=== PATIENT | male | born 1970 | race Caucasian/White ===

== ENCOUNTER 2018-05-19 20:32 | Emergency (ER) | payer MEDICARE, SELFPAY ==
[2018-05-19 20:36] VITALS: BP 124/79; PULSE 82; RESP 20; TEMP 38.2; O2SAT 98
[2018-05-19 21:02] LABS: Influenza A and B by PCR Rapid Negative (Negative)
--- NOTE | 2018-05-19 21:34 | DI.RAD.S_ITS ---
PROCEDURE: XR CHEST 1V INDICATIONS: fever cough TECHNIQUE: One view of the chest was acquired. COMPARISON: None. FINDINGS: Surgical changes and devices: None. Lungs and pleura: No pleural effusions or pneumothorax. Calcified granuloma is present in the right base. Mediastinum: Mediastinal contours appear normal. Heart size is normal. Bones and chest wall: No suspicious bony lesions. Overlying soft tissues appear unremarkable. IMPRESSION: No acute pulmonary process. Dictated by: Anya Adkins M.D. on 05/20/2018 at 11:20 Approved by: Anya Adkins M.D. on 05/20/2018 at 11:26
[2018-05-19] MEDS: KETOROLAC 60 MG/2 ML VIAL 30 MG IV (21:43)
[2018-05-19] MEDS: SODIUM CHLORIDE 0.9% 1,000 ML 1000 ML IV (21:43)
[2018-05-19] MEDS: ONDANSETRON 4 MG/2 ML INJ IV (21:44)
--- NOTE | 2018-05-19 21:47 | ED_ITS ---
HPI - Fever General Chief Complaint: Fever Stated Complaint: STATES FLU SYMPTOMS Time Seen by Provider: 05/19/18 21:19 Source: patient Mode of arrival: ambulatory Limitations: no limitations History of Present Illness HPI Narrative: the patient is a 48-year-old male who has had fever and body aches ongoing for the last 5 days. His he says that the chills and body aches for the worse. He has been having some nausea and vomiting unable to keep any fluids down. His he denies any real significant abdominal pain or diarrhea. His he sometimes has cough no real chest pain. MD complaint: fever Onset (ago): day(s) (5) Associated symptoms: chills, rigors, nausea and vomiting Exacerbating factors: nothing Treatments prior to arrival fever: ibuprofen ( At 2:00 p.m.) Related Data Previous Rx's Medication Instructions Recorded MELOXICAM 15 mg PO Q DAY #90 01/10/11 cyclobenzaprine 10 mg PO TIDP #90 01/10/11 ondansetron HCl 4 mg PO DAILY PRN #10 tab 05/19/18 Allergies Allergy/AdvReac Type Severity Reaction Status Date / Time No Known Drug Allergies Allergy Verified 05/19/18 21:39 Review of Systems Review of Systems ROS Unobtainable: All systems reviewed & are unremarkable except as noted in HPI and below Constitutional Reports body ache(s), Reports chills, Reports fatigue and Reports fever(s) Eyes Denies change in vision, Denies eye discharge, Denies irritation and Denies loss of vision ENT Ears, Nose, Mouth, and Throat: Denies change in voice, Denies neck pain and Denies sore throat Cardiovascular Denies dyspnea and Denies dyspnea on exertion Respiratory Denies cough, Denies dyspnea, Denies dyspnea on exertion and Denies wheezing Gastrointestinal Gastrointestinal: Denies abdominal pain, Denies change in bowel habits, Denies diarrhea, Reports nausea and Reports vomiting Musculoskeletal Denies neck pain Neurologic Denies loss of vision Endocrine Reports fatigue Allergic/Immunologic Denies wheezing PFSH Medical History 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 HEENT: Head atraumatic,EOMI, pupils reactive, neck is supple CARDIOVASCULAR: Regular rate and rhythm without murmurs, rubs or gallops. RESPIRATORY: Breath sounds equal bilaterally, no wheezes rales or rhonchi. ABDOMEN: Soft, nontender. Normoactive bowel sounds all 4 quadrants. No guarding or rebound. : No CVA tenderness EXTREMITIES: Normal range of motion, no clubbing or edema. Neurovascularly intact NEUROLOGICAL: Alert and oriented x4.Normal gait and speech. Cranial nerves II through XII grossly intact. SKIN: Warm, dry, no laceration, no petechiae, no rashes or lesions. Course Orders Ordered: ED Orders 05/19/18 20:43 Influenza A and B by PCR Rapid Stat 05/19/18 21:34 XR chest 1V Stat 05/19/18 22:05 Complete Blood Count AUTO DIFF Stat Comprehensive Metabolic Panel Stat Lactate (Lactic Acid) Stat Lipase Stat 05/19/18 22:15 Blood Culture Stat 05/19/18 22:57 Ictotest Urine Stat Urine Microscopic Stat Discontinued Medications Sodium Chloride (Normal Saline 0.9%) 1,000 mls @ 1,000 mls/hr IV CONT LIBRADO Last Infusion: 05/19/18 22:49 Dose: 1,000 mls/hr Admin: 05/19/18 21:43 Dose: 1,000 mls/hr Ketorolac Tromethamine (Toradol) 30 mg IV NOW ONE Stop: 05/19/18 21:34 Last Admin: 05/19/18 21:43 Dose: 30 mg Ondansetron HCl (Zofran) 4 mg IV NOW ONE Stop: 05/19/18 21:34 Last Admin: 05/19/18 21:44 Dose: 4 mg Ondansetron HCl (Zofran Odt Prepack) 1 bottle MISC SEEINSTR ONE Stop: 05/19/18 23:07 Last Admin: 05/19/18 23:09 Dose: 1 bottle Vital Signs - 8 hr 05/19/18 20:36 05/19/18 22:24 05/19/18 22:43 Temperature 100.7 F H 100.7 F H 98.7 F Pulse Rate 82 82 Respiratory Rate 20 20 Blood Pressure 124/79 124/79 Pulse Oximetry 98 98 MDM - Fever Lab Data Attestation: I reviewed the patient's lab results. Result diagrams: 05/19/18 22:05 05/19/18 22:05 Lab Results 05/19/18 05/19/18 05/19/18 Range/Units 20:43 22:05 22:05 WBC 7.3 (4.5-11.0) X10^3/uL RBC 4.73 (4.5-5.9) X10^6/uL Hgb 13.1 L (13.5-17.5) g/dL Hct 39.7 L (41-53) % MCV 84.0 (80-100) fL MCH 27.8 (26-34) PG MCHC 33.1 (30-36) % RDW 13.6 (11.6-14.8) % Plt Count 328 (150-400) X10^3/uL Neut % (Auto) 60.5 (50-75) % Lymph % (Auto) 27.9 (25-40) % [place] % (Auto) 8.8 (3-14) % Eos % (Auto) 1.9 L (2-4) % Baso % (Auto) 0.9 (0-2) % Neut # (Auto) 4400 (7546-3451) /uL Lymph # (Auto) 2000 (3434-4582) /uL [place] # (Auto) 600 (0-900) /uL Eos # (Auto) 100 (0-450) /uL Baso # (Auto) 100 (0-100) /uL Sodium 137 (137-145) mmol/L Potassium 4.1 (3.4-5.1) mmol/L Chloride 100 (98-107) mmol/L Carbon Dioxide 30 (22-32) mmol/L BUN 19 (9-20) mg/dL Creatinine 0.90 (0.66-1.25) mg/dL Estimated GFR > 60.0 (>60) mL/min BUN/Creatinine Ratio 21.1 (6-22) Glucose 109 H (70-100) mg/dL Lactate (0.7-2.1) mmol/L Calcium 8.9 (8.4-10.2) mg/dL Total Bilirubin 0.4 (0.2-1.3) mg/dL AST 17 (17-59) IU/L ALT 21 (21-72) IU/L Alkaline Phosphatase 46 (38-126) U/L Total Protein 7.0 (6.3-8.2) g/dL Albumin 4.2 (3.5-5.0) g/dL Globulin 2.8 (1.7-4.1) g/dL Albumin/Globulin Ratio 1.5 (1.0-2.8) Lipase 192 (23-300) U/L Urine Ictotest (Negative) Urine RBC (0-5/HPF) Urine WBC (0-5/HPF) Urine Bacteria (None) Ur Culture Indicated? Micro UA Comment Influenza A & B (PCR) Negative (Negative) 05/19/18 05/19/18 Range/Units 22:05 22:57 WBC (4.5-11.0) X10^3/uL RBC (4.5-5.9) X10^6/uL Hgb (13.5-17.5) g/dL Hct (41-53) % MCV (80-100) fL MCH (26-34) PG MCHC (30-36) % RDW (11.6-14.8) % Plt Count (150-400) X10^3/uL Neut % (Auto) (50-75) % Lymph % (Auto) (25-40) % [place] % (Auto) (3-14) % Eos % (Auto) (2-4) % Baso % (Auto) (0-2) % Neut # (Auto) (1576-3061) /uL Lymph # (Auto) (3364-5131) /uL [place] # (Auto) (0-900) /uL Eos # (Auto) (0-450) /uL Baso # (Auto) (0-100) /uL Sodium (137-145) mmol/L Potassium (3.4-5.1) mmol/L Chloride (98-107) mmol/L Carbon Dioxide (22-32) mmol/L BUN (9-20) mg/dL Creatinine (0.66-1.25) mg/dL Estimated GFR (>60) mL/min BUN/Creatinine Ratio (6-22) Glucose (70-100) mg/dL Lactate 0.8 (0.7-2.1) mmol/L Calcium (8.4-10.2) mg/dL Total Bilirubin (0.2-1.3) mg/dL AST (17-59) IU/L ALT (21-72) IU/L Alkaline Phosphatase (38-126) U/L Total Protein (6.3-8.2) g/dL Albumin (3.5-5.0) g/dL Globulin (1.7-4.1) g/dL Albumin/Globulin Ratio (1.0-2.8) Lipase (23-300) U/L Urine Ictotest Negative (Negative) Urine RBC None seen (0-5/HPF) Urine WBC None seen (0-5/HPF) Urine Bacteria None seen (None) Ur Culture Indicated? Cult not indicated Micro UA Comment Microscopic normal Influenza A & B (PCR) (Negative) Urine Dip Bedside Urine Glucose Negative Bedside Urine Bilirubin + 1 Bedside Urine Ketone - Negative Urine Specific [place] 1.015 Bedside Urine Occult Blood - Negative Bedside Urine pH 7.0 Bedside Urine Protein +/- 15 Bedside Urine Urobilinogen +/- 1mg Bedside Urine Nitrite - Negative Bedside Urine Leukocytes - Negative Esterase MDM Narrative Medical decision making narrative: At this time no sign of the sepsis. Patient' s neck is supple he does not have headache do not suspect meningitis. For shunt infection. He overall is feeling much better after IV fluids and Zofran. Blood work is within normal limits. Discharge Plan Departure Patient Disposition: Home Clinical Impression: Gastroenteritis Discharge Date/Time: 05/19/18 23:16 Interventions: ED Discharge Assessment Last Done: 05/19/18 23:16 Instructions: DI for Viral Gastroenteritis -- Adult Activity Restrictions/Additional Instructions: *You have been diagnosed with gastroenteritis *What to do: Likely viral syndrome at this time blood work and x-ray are reassuring. Recommend rehydration with of Gatorade or Gatorade like substance. *Continue to take medications as directed Zofran 4 mg every 6-8 hours as needed *Follow up with your primary care provider in 2-3 days *Return to ER if you should have inability to tolerate any oral fluids, increasing pain, fever not controlled or any new, worsening or concerning symptoms Prescriptions: New ondansetron HCl 4 mg tablet 4 mg PO DAILY PRN (Reason: nausea and vomiting) Qty: 10 RF: 0 No Action cyclobenzaprine 10 MG tablet 10 mg PO TIDP Qty: 90 RF: 3 MELOXICAM 15 mg PO Q DAY Qty: 90 RF: 3
[2018-05-19 22:10] LABS: Add Manual Diff / Slide Review NO; Basophils Absolute Auto 100 /uL (0-100); Basophils Percent Auto 0.9 % (0-2); Eosinophils Absolute Auto 100 /uL (0-450); Eosinophils Percent Auto 1.9 % (2-4); Hematocrit 39.7 % (41-53); Hemoglobin 13.1 g/dL (13.5-17.5); Lymphocytes Absolute Auto 2000 /uL (1100-4500); Lymphocytes Percent Auto 27.9 % (25-40); Mean Corpuscular HGB Conc 33.1 % (30-36); Mean Corpuscular Hemoglobin 27.8 PG (26-34); Monocytes Absolute Auto 600 /uL (0-900); Monocytes Percent Auto 8.8 % (3-14); Neutrophils Absolute Auto 4400 /uL (1500-7000); Neutrophils Percent Auto 60.5 % (50-75); Platelet Count 328 X10^3/uL (150-400); Red Blood Cell Count 4.73 X10^6/uL (4.5-5.9); Red Cell Distribution Width 13.6 % (11.6-14.8); White Blood Cell Count 7.3 X10^3/uL (4.5-11.0)
[2018-05-19 22:18] LABS: Lactate (Lactic Acid) 0.8 mmol/L (0.7-2.1)
[2018-05-19 22:19] LABS: Alanine Aminotransferase 21 IU/L (21-72); Albumin 4.2 g/dL (3.5-5.0); Albumin Globulin Ratio 1.5 (1.0-2.8); Alkaline Phosphatase 46 U/L (38-126); Aspartate Aminotransferase 17 IU/L (17-59); BUN Creatinine Ratio 21.1 (6-22); Bilirubin Total 0.4 mg/dL (0.2-1.3); Blood Urea Nitrogen 19 mg/dL (9-20); Calcium 8.9 mg/dL (8.4-10.2); Carbon Dioxide 30 mmol/L (22-32); Chloride 100 mmol/L (98-107); Estimated Glomerular Filt Rate > 60.0 mL/min (>60); Globulin 2.8 g/dL (1.7-4.1); Glucose 109 mg/dL (70-100); HEMOLYSIS < 15 (0-50); Lipase 192 U/L (23-300); Potassium 4.1 mmol/L (3.4-5.1); Sodium 137 mmol/L (137-145)
[2018-05-19 22:24] VITALS: BP 124/79; PULSE 82; RESP 20; TEMP 38.2; O2SAT 98
[2018-05-19 22:43] VITALS: TEMP 37.1
[2018-05-19] MEDS: ONDANSETRON 4 MG ODT PREPACK 1 BOTTLE MISC (23:09)
[2018-05-19 23:14] LABS: Bacteria Urine None Seen; RBC Urine None Seen (0-5/HPF); WBC Urine None Seen (0-5/HPF)
[2018-05-19 23:36] LABS: Culture Indicated Urine Cult Not Indicated; Ictotest Urine Negative (Negative); Urine Comments Microscopic Normal
[2018-05-24 14:14] LABS: Acinetobacter baumannii Not Detected (Not Detect); Candida albicans Not Detected (Not Detect); Candida glabrata Not Detected (Not Detect); Candida krusei Not Detected (Not Detect); Candida parapsilosis Not Detected (Not Detect); Candida tropicalis Not Detected (Not Detect); E. coli Not Detected (Not Detect); Enterobacter cloacae complex Not Detected (Not Detect); Enterobacteriaceae species Not Detected (Not Detect); Enterococcus species Not Detected (Not Detect); Haemophilus influenzae Not Detected (Not Detect); Listeria monocytogenes Not Detected (Not Detect); Neisseria meningitidis Not Detected (Not Detect); Proteus species Not Detected (Not Detect); Pseudomonas aeruginosa Not Detected (Not Detect); Serratia marcescens Not Detected (Not Detect); Staphylococcus species Not Detected (Not Detect); Streptococcus agalactiae (Gr B Not Detected (Not Detect); Streptococcus pneumonia Not Detected (Not Detect); Streptococcus pyogenes (Gr A) Not Detected (Not Detect); Streptococcus species Not Detected (Not Detect)
--- NOTE | 2018-05-24 14:36 | PC.NURSE ---
provider Marine notified of gram stain positive BC result. No new orders at this time per provider.
== END 2018-05-19 23:16 | disposition home or self-care (01) ==
PROVIDERS: Emergency Provider Emergency Medicine
DX: K52.9 Noninfective gastroenteritis and colitis, unspecified (principal)
CPT/HCPCS: 36591; 71045; 80053; 81003; 81015; 83605; 83690; 85025; 87040; 87077; 87150; 87205; 87400; 96361; 96374; 96375; 99283; 99284; J1885; J2405

== ENCOUNTER 2018-05-31 00:01 | Emergency (ER) | payer MEDICARE, SELFPAY ==
[2018-05-31 00:15] VITALS: BP 133/84; PULSE 82; RESP 18; TEMP 36.6; O2SAT 99; BMI 21.6
--- NOTE | 2018-05-31 00:49 | DI.US.S_ITS ---
PROCEDURE: US SCROTUM INDICATIONS: PAIN AND SWELLING IN LEFT TESTICLE TECHNIQUE: Real-time scanning was performed of the scrotum and testicles, with image documentation. Color and pulse Doppler interrogation was performed of both testicles. COMPARISON: None. FINDINGS: Right: Testicle is normal in size at 2.4 x 3.0 x 5.0 cm, and homogenous in echotexture. Epididymis is normal in overall size and morphology. No hydrocele or varicoceles. Overlying scrotal skin is normal in thickness. There is a right epididymal 7 mm cyst as an incidental finding. Left: Testicle is normal in size at 2.6 x 2.8 x 3.6 cm, and homogeneous in echotexture. Epididymis is normal in overall size and morphology. No hydrocele or varicoceles. Overlying scrotal skin is normal in thickness. Doppler: Color and pulse Doppler demonstrate normal and symmetric arterial flow in both testicles. IMPRESSION: No sign of testicular mass, inflammation or torsion. Incidental mode is made of a right epididymal cyst measuring 7 mm. Please note that prior torsion from the past generally would not be detectable by current ultrasound, if resolution of torsion spontaneously occurred. Note: These findings are concordant with the preliminary interpretation. Dictated by: Edi Yang M.D. on 05/31/2018 at 8:39 Approved by: Edi Yang M.D. on 05/31/2018 at 8:41
[2018-05-31 02:08] VITALS: BP 130/94; PULSE 78; RESP 18; TEMP 36.7; O2SAT 100
[2018-05-31] MEDS: MECLIZINE HCL 12.5 MG TABLET 25 MG PO (03:40)
[2018-05-31 03:43] VITALS: BP 122/86; PULSE 73; RESP 16; O2SAT 99
--- NOTE | 2018-06-01 09:42 | ED_ITS ---
HPI - Male Genitourinary General Chief complaint: Dizziness Stated complaint: dizziness pain left testicle vomiting Time Seen by Provider: 05/31/18 02:16 Source: patient and family Mode of arrival: ambulatory Limitations: no limitations History of Present Illness HPI Narrative: Patient complains of left testicular pain and swelling for about a month. He states sometimes the pain makes him nauseated. Patient does not have a particular incident that he can think of that set this off. He denies dysuria or fevers. No penile discharge. No lesions on his penis or scrotum. No discoloration of the scrotum. No bulging either intermittently or constantly. Patient does note that he has had episodes of dizziness with movement, particularly when he goes from supine to upright position, but also with turning of his head. He states it is worse if he goes repeatedly from supine to sitting or turns his head repeatedly. He states he gets nauseated with the dizziness. He denies any focal neurologic symptoms otherwise. No visual changes. He has not seen his doctor for this. Patient does note that he had a testicular torsion in the past, and has sutures in place to hold the testicle in position. Related Data Previous Rx's Medication Instructions Recorded MELOXICAM 15 mg PO Q DAY #90 01/10/11 cyclobenzaprine 10 mg PO TIDP #90 01/10/11 ondansetron HCl 4 mg PO DAILY PRN #10 tab 05/19/18 meclizine 25 mg PO TID #20 tab 05/31/18 Allergies Allergy/AdvReac Type Severity Reaction Status Date / Time No Known Drug Allergies Allergy Verified 05/19/18 21:39 Review of Systems Review of Systems ROS Unobtainable: All systems reviewed & are unremarkable except as noted in HPI and below Constitutional Denies chills, Denies fever(s), Denies lethargy and Denies weakness Eyes Denies change in vision, Denies eye discharge, Denies irritation and Denies loss of vision ENT Ears, Nose, Mouth, and Throat: Denies change in voice, Reports dizziness, Denies neck pain and Denies sore throat Cardiovascular Denies chest pain, Denies irregular heart rhythm, Denies lightheadedness, Denies palpitations, Denies dyspnea, Denies dyspnea on exertion and Denies orthopnea Respiratory Denies cough, Denies dyspnea, Denies dyspnea on exertion and Denies wheezing Gastrointestinal Gastrointestinal: Denies abdominal pain, Denies change in bowel habits, Denies diarrhea, Denies nausea and Denies vomiting Genitourinary Denies hematuria, Denies flank pain, Reports testicular pain, Denies urinary incontinence and Denies urinary urgency Musculoskeletal Denies neck pain Integumentary/Breasts Denies pruritus, Denies erythema, Denies rash and Denies wounds Neurologic Denies confusion, Reports dizziness, Denies loss of vision and Denies weakness Psychiatric Denies anxiety, Denies confusion, Denies depression, Denies homicidal ideation and Denies suicidal ideation Endocrine Denies palpitations Hematologic/Lymphatic Denies easy bruising Allergic/Immunologic Denies wheezing PFSH Medical History Left testicular torsion (Acute) Ventricular shunt in place (Acute) Surgical History S/P [employer] shunt (Acute) Social History Smoking Status: Former smoker Social History Smoking Status: Former smoker Exam Initial Vital Signs Initial Vital Signs: Vital Signs Temperature 97.9 F 05/31/18 00:15 Pulse Rate 82 05/31/18 00:15 Respiratory Rate 18 05/31/18 00:15 Blood Pressure 133/84 05/31/18 00:15 Pulse Oximetry 99 05/31/18 00:15 Const General: cooperative and well developed Nutritional Appearance: well nourished Orientation: alert, awake, oriented x3 and not confused [facility] Head: normocephalic and atraumatic Ears: external ears normal and TM's normal bilaterally Nose: external nose normal and No nasal discharge Face and sinus: sinuses nontender, face symmetric, no sinus tenderness and No dry mucous membranes Mouth: oral mucosae normal and moist mucous membranes Teeth and gingiva: dentition normal Throat: tonsils normal and uvula midline Eyes General: appearance normal, both eyes and all related structures Eyelids: eyelids normal Conjunctivae: conjunctivae normal Sclera: sclerae normal Pupils: PERRL EOM: EOM intact bilaterally Neck Neck: normal visual inspection, trachea midline, No lymphadenopathy, No midline deformity and No JVD Lymphatic: No lymphedema Chest Chest: normal inspection of the chest Resp Effort & Inspection: normal respiratory effort, able to speak in complete sentences, no respiratory distress and no use of accessory muscles Auscultation: clear to auscultation bilaterally, no rales, no rhonchi and no wheezes Cardio Rate: regular rate Rhythm: regular rhythm Heart Sounds: no click, no gallops, no murmurs and no rubs Pulses: normal peripheral pulses GI Inspection: non-distended Palpation: soft, no hepatosplenomegaly, No guarding, No pulsatile mass and No tender Auscultation: normal bowel sounds Penis: normal penis, foreskin retracts and no swelling Scrotum: scrotum normal Testes: testicular lie normal, epididymides normal, testicles not atrophic, no blue dot sign, not enlarged, no epididymal induration, no epidiymal masses and testicular tenderness (Left, moderate.) Back/Spine/Pelvis Back: No CVA tenderness Cervical Spine: cervical ROM normal and No pain with cervical ROM Thoracic/Lumbar Spine: thoracic and lumbar spine normal to inspection Skin General: no rashes or lesions noted, No jaundice and No petechiae Neuro General: alert, oriented x3, gait normal and no focal motor deficits Speech: speech normal Extrem General: full ROM, no clubbing, cyanosis or edema, no pedal edema and no calf tenderness Psych Appearance: well kempt Mental Status: mental status grossly normal Attitude: cooperative Thought Content: normal and suicidality Judgment: judgment good Course Course Narrative: Patient was worked up with an ultrasound of his testicles, which was unremarkable. I discussed with the patient that I do not find evidence of hernia at this time, and although the patient's testicle is tender, the ultrasound is unremarkable. The patient does not have any findings concerning for sexually transmitted disease on exam at this time. We have discussed that we could possibly do a CT pelvis, which would indicate any pelvic pathology which could cause referred pain to the left testicle, although generally, we would expect that the testicle would not necessarily be tender with referred pain. As far as the patient's vertigo, this seems to be positional , and as such, is most likely peripheral. However, we have discussed that we could do a CT scan of the head to be sure there is no other pathology going on. I would expect this to be negative. The patient and his have opted to have outpatient follow-up for the symptoms. I will start him on meclizine to help with the dizziness and see if this is effective. We have discussed the usual indications for return, as well as symptomatic management at home. Orders Ordered: Discontinued Medications Meclizine HCl (Antivert) 25 mg PO NOW ONE Stop: 05/31/18 03:14 Last Admin: 05/31/18 03:40 Dose: 25 mg MDM - Male Genitourinary Medical Records Attestation: I reviewed the patient's medical records. Imaging Data Scrotal ultrasound: Radiologist's impression: PROCEDURE: US SCROTUM INDICATIONS: PAIN AND SWELLING IN LEFT TESTICLE TECHNIQUE: Real-time scanning was performed of the scrotum and testicles, with image documentation. Color and pulse Doppler interrogation was performed of both testicles. COMPARISON: None. FINDINGS: Right: Testicle is normal in size at 2.4 x 3.0 x 5.0 cm, and homogenous in echotexture. Epididymis is normal in overall size and morphology. No hydrocele or varicoceles. Overlying scrotal skin is normal in thickness. There is a right epididymal 7 mm cyst as an incidental finding. Left: Testicle is normal in size at 2.6 x 2.8 x 3.6 cm, and homogeneous in echotexture. Epididymis is normal in overall size and morphology. No hydrocele or varicoceles. Overlying scrotal skin is normal in thickness. Doppler: Color and pulse Doppler demonstrate normal and symmetric arterial flow in both testicles. IMPRESSION: No sign of testicular mass, inflammation or torsion. Incidental mode is made of a right epididymal cyst measuring 7 mm. Please note that prior torsion from the past generally would not be detectable by current ultrasound, if resolution of torsion spontaneously occurred. Note: These findings are concordant with the preliminary interpretation. Dictated by: Edi Yang M.D. on 05/31/2018 at 8:39 Approved by: Edi Yang M.D. on 05/31/2018 at 8:41 Discharge Plan Departure Patient Disposition: Home Clinical Impression: Vertigo, Left testicular pain Discharge Date/Time: 05/31/18 03:50 Interventions: ED Discharge Assessment Last Done: 05/31/18 04:18 Instructions: DI for Benign Paroxysmal Positional Vertigo, DI for Testicular Pain Activity Restrictions/Additional Instructions: Your ultrasound looks good. You have a tiny cyst on the right, nothing unusual as noted on the left. Prescriptions: New meclizine 25 mg tablet 25 mg PO TID Qty: 20 RF: 0 No Action cyclobenzaprine 10 MG tablet 10 mg PO TIDP Qty: 90 RF: 3 MELOXICAM 15 mg PO Q DAY Qty: 90 RF: 3 ondansetron HCl 4 mg tablet 4 mg PO DAILY PRN (Reason: nausea and vomiting) Qty: 10 RF: 0 Referrals: [facility] [Provider Group] [facility] [Provider Group] Fan Carter MD [Non-Staff] -
== END 2018-05-31 03:50 | disposition home or self-care (01) ==
PROVIDERS: Emergency Provider Emergency Medicine
DX: N50.812 Left testicular pain (principal); R42 Dizziness and giddiness
CPT/HCPCS: 76870; 99282; 99284